=== PATIENT | male | born 1990 | race African-American/Black ===

== ENCOUNTER 2020-07-20 21:31 | Emergency (ER) | payer BC, OTHER ==
[~2020-07-20] VITALS: Ht 165.1 cm; Wt 82.8 kg
--- NOTE | 2020-07-20 22:25 | NUR ---
pt to room from lobby
--- NOTE | 2020-07-20 22:31 | NUR ---
pt came into ed today with after sudden onset of pain in lower abdominal/groin region after laying in bed. pt reports originally thinking it was a cramp but it didnt subside. pt transferred to [facility] at this time, smooth steady gait, denies gi/gu changes or swelling. 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 nad, placed on spo2/bp monitoring, wctm. shawna tijerina at bs for eval and poc
[2020-07-20] MEDS ORDERED: ONDANSETRON 2MG/ML, 2ML ONE (22:43)
[2020-07-20] MEDS ORDERED: MORPHINE SULFATE 4 MG/ML, 1ML ONE ×2 (22:43→23:31)
[2020-07-20] MEDS: MORPHINE SULFATE 4 MG/ML, 1ML IVPush PRN ×2 (22:51→23:41)
[2020-07-20] MEDS ORDERED: ONDANSETRON 2MG/ML, 2ML IVPush ONE (23:00)
[2020-07-20 23:22] LABS: BASOPHILS % (AUTO) 1 % (0-1); EOSINOPHILS % (AUTO) 2 % (1-7); LYMPHOCYTES % (AUTO) 38 % (22-44); MEAN CORPUSCULAR HEMOGLOBIN 26.5 pg (27.5-34.5); MEAN CORPUSCULAR HGB CONC 32.6 g/dL (33.2-36.2); MEAN PLATELET VOLUME 8.9 fL (7.4-10.4); MONOCYTES % (AUTO) 10 % (2-9); NEUTROPHILS % (AUTO) 49 % (42-75); PLATELET COUNT 207 x10^3/uL (130-400); RED BLOOD COUNT 5.26 x10^6/uL (4.38-5.82)
--- NOTE | 2020-07-20 23:26 | NUR ---
PT RESTING ON GURNEY, PAIN SLIGHTLY DECREASED BUT REPORTS HIS STOMACH IS STILL HURTING SIGNIFICANTLY. PT MEDICATED PER MAR, AT BS, PT TO RECEIVE CT. WAITING FOR LABS AND CT RESULTS. WCTM. PROVIDED WARM BLANKETS FOR COMFORT. BED IN LOWEST, CALL LIGHT ON LAP, NAD.
[2020-07-20 23:27] LABS: MD NO
[2020-07-20] MEDS ORDERED: OMNIPAQUE 350 MG/ML, 100ML BOTTLE ONE (23:29)
[2020-07-20 23:33] LABS: ALANINE AMINOTRANSFERASE 25 U/L (12-78); ALBUMIN 3.9 g/dL (3.4-5.0); ANION GAP 4 mmol/L (5-15); CALCIUM 8.5 mg/dL (8.5-10.1); CHLORIDE 105 mmol/L (98-107); CREATININE 1.19 mg/dL (0.7-1.3)
[2020-07-20 23:34] LABS: MICROSCOPIC NOT IND
[2020-07-20 23:36] LABS: ALKALINE PHOSPHATASE 69 U/L (45-117); BILIRUBIN,TOTAL 0.3 mg/dL (0.2-1.0); TOTAL PROTEIN 7.4 g/dL (6.4-8.2)
[2020-07-21] MEDS ORDERED: LORazepam 0.5MG TABLET PO ONE (00:30)
--- NOTE | 2020-07-21 01:08 | NUR ---
rn attempted to walk pt, pt slightly unsteady, pt assisted back onto jose carrizales, provided work note for dc when mtf. at , jose, no change in condition, appears comfortable, bed in lowest, call light on lap. tm.
--- NOTE | 2020-07-21 02:00 | NUR ---
Patient/SPOUSE given discharge instructions and they have confirmed that they understand the instructions. Patient ambulatory with steady gait. NAD, DENIES ADDITIONAL QUESTIONS OR NEEDS AT THIS TIME. NO PERSONAL BELONGINGS LEFT IN ROOM AT TIME OF DC
[2020-07-21 03:02] VITALS: BP 103/67
== END 2020-07-21 03:04 | disposition home or self-care (01) ==
LOC: ED 07-21 01:37
DX: R10.31 Right lower quadrant pain (principal)
CPT/HCPCS: 36415; 74177; 80053; 81003; 85025; 96374; 96375; 96376; 99285; J2270; J2405; Q9967

== ENCOUNTER 2021-06-02 22:54 | Emergency (ER) | payer BC | END 2021-06-02 23:56 | disposition home or self-care (01) | LOC: ED 22:54 | DX: M79.661 Pain in right lower leg (principal) | CPT/HCPCS: 29515; 99283 ==